=== PATIENT | female | born 1990 | race Caucasian/White ===

== ENCOUNTER 2021-03-26 17:13 | Emergency (ER) | payer OTHER, SELFPAY ==
[2021-03-26 17:16] VITALS: BP 110/81; PULSE 89; RESP 18; TEMP 37; O2SAT 97; BMI 30.1
[2021-03-26 17:28] LABS: Microscopic, Urine URINE MICROSCOPIC (MICROSCOPIC)
--- NOTE | 2021-03-26 17:28 | HMH.EDABDPAI ---
ED Disposition Clinical Impression: Cystitis Disposition: Home, Self-Care Condition on Discharge: Good Instructions: DI for Acute Abdominal Pain Additional Instructions: Take all medications as prescribed. Follow-up with your primary care doctor in about 3 to 4 days if you are not improving. Return to the emergency department if your symptoms are worsening. Prescriptions: Ciprofloxacin HCl [Cipro 500mg Tab] 500 mg PO BID 7 Days #1 tab Transmission Status: Received by [facility] #[id number] Referrals: Freddie Don [Primary Care Provider] - - Critical Care Critical Care Time: No Attestation: On , the high probability of a clinically significant, sudden or life threatening deterioration of the following system(s) required my full and direct attention, intervention and personal management. The time I documented below is in addition to time spent performing reported procedures but includes the following listed in this critical care notation. Medical Decision Making - Medical Records Medical records reviewed: Yes: I reviewed the patient's medical records. - Allna Inquiry Pt receiving controlled substance: No Vital Signs: 03/26/21 17:16 03/26/21 17:41 03/26/21 18:00 Temperature 98.6 F 98.6 F Temperature Source Oral Pulse Rate 84 86 Pulse Rate [Right] 89 Respiratory Rate 18 18 16 Blood Pressure 126/83 111/75 Blood Pressure [Right Arm] 110/81 Blood Pressure Mean [Right Arm] 90 02 Sat by Pulse Oximetry 97 98 Oxygen Delivery Method Room Air - Lab Data Lab results reviewed: Yes: I reviewed the patient's lab results. Lab Results 03/26/21 17:19: Urine Color Dk yellow, Urine Appearance Cloudy, Urine pH 6.0, Ur Specific [place] 1.025, Urine Protein 1+, Urine Glucose (UA) Negative, Urine Ketones Negative, Urine Blood 3+, Urine Nitrate Positive, Urine Bilirubin Negative, Urine Urobilinogen 2.0, Ur Leukocyte Esterase 2+ A, Urine RBC 10-20, Urine WBC 10-20, Ur Squamous Epith Cells 3-5, Urine Bacteria 2+ 03/26/21 17:19: Urine HCG, Qual Negative Orders (Tests/Meds): ORDERS Category Date Time Status Urine Culture Stat Micro 03/26/21 17:19 Received Medical Decision Narrative: The patient presents to the emergency department complaining of approximately 1 week history of urinary tract infection symptoms. The patient's work-up in the emergency department reveals a urinary tract infection without evidence of acute pyelonephritis. The patient is not vomiting. Therefore, I believe that the patient can be safely discharged home on oral antibiotics. Abdominal Pain HPI - General Chief Complaint: Abdominal Pain Stated Complaint: Possible UTI,stomach,back pain Time Seen by Provider: 03/26/21 17:20 Mode of Arrival: Ambulatory Source of Information: Patient Limitations: No Limitations - History of Present Illness HPI narrative: Presents to the emergency department complaining of urinary tract infection symptoms. She states this began about March 18 and has not improved. She took some Azo without any relief. She states that she has had subjective fevers but did not measure her temperature. Patient denies any nausea or vomiting or diarrhea. MD complaint: abdominal pain Onset (ago): day(s) (8) Consistency: constant Location: L flank, R flank - Related Data Previous Rx's Medication Instructions Recorded Ciprofloxacin HCl [Cipro 500mg 500 mg PO BID 7 Days #1 tab 03/26/21 Tab] Allergies Allergy/AdvReac Type Severity Reaction Status Date / Time No Known Drug Allergies Allergy Unknown Unverified 09/02/17 14:56 [NKDA] [facility] History - Hepatitis A Screen Drug use history?: No High risk sexual behaviors?: No Attestation statement:: This patient has been screened for Hepatitis A risk factors. I have reviewed the patient's past medical history: Yes ROS Obtained: Yes All systems reviewed & no additional complaints Physical Exam - General General appea
[2021-03-26 17:31] LABS: Appearance,Urine CLOUDY (Clear); Bilirubin,Urine Negative (Negative); Blood, Urine 3+ (Negative); Color,Urine DK YELLOW (Yellow); Glucose,Urine (UA) Negative (Negative); Ketones,Urine Negative (Negative); Leukocyte Esterase,Urine 2+ (Negative); Nitrate,Urine POSITIVE (Negative); Protein,Urine 1+ (Negative); Specific Gravity, Urine 1.025 (1.005-1.030)
[2021-03-26 17:35] LABS: Urine Pregnancy, HCG Qual. Negative (Negative)
[2021-03-26 17:41] VITALS: BP 126/83; PULSE 84; RESP 18; O2SAT 98
[2021-03-26 17:45] LABS: Bacteria,Urine 2+ /lpf
[2021-03-26 18:00] VITALS: BP 111/75; PULSE 86; RESP 16; TEMP 37; O2SAT 97
--- NOTE | 2021-03-26 18:19 | PC.NURSE ---
[facility] CALLED AND STATED PATIENT HAS NOT RECEIVED SCRIPT THAT WAS SENT ELECTRONICALLY AND REQUESTED FOR A RE-TRANSMISSION. IT WAS RE-TRANSMITTED AT THIS TIME AND CONFIRMED
== END 2021-03-26 18:01 | disposition home or self-care (01) ==
PROVIDERS: Emergency Provider Emergency Medicine; PCP Pediatrics
DX: N30.90 Cystitis, unspecified without hematuria (principal)
CPT/HCPCS: 81001; 81025; 87086; 87088; 87186; 99281

== ENCOUNTER 2022-01-14 19:38 | Emergency (ER) | payer OTHER, SELFPAY ==
[2022-01-14 21:23] VITALS: BP 114/70; PULSE 86; RESP 18; TEMP 37.1; O2SAT 97; BMI 33.5
[2022-01-14 21:31] LABS: UTC Influenza A Antigen Negative (Negative); UTC Influenza B Antigen Negative (Negative)
[2022-01-14 21:34] LABS: Strep Scrn Group A (Rapid) Negative (Negative)
--- NOTE | 2022-01-14 22:00 | HMH.EDUTC ---
[facility] [place] Clinical Impression: Pharyngitis Qualifiers: Pharyngitis/tonsillitis etiology: unspecified etiology Qualified Code(s): J02.9 - Acute pharyngitis, unspecified Disposition: Home, Self-Care Condition on Discharge: Good Instructions: DI for Pharyngitis/Tonsillopharyngitis -- Adult Additional Instructions: Drink plenty of fluids. Take tylenol or ibuprofen for pain or fever. Take the medications as directed. Follow up with your regular doctor. GO TO THE ER FOR ANY WORSENING SYMPTOMS Prescriptions: Amoxicillin [Amoxicillin 500mg Tab] 500 mg PO TID 10 Days #30 tab Transmission Status: Received by [employer] # predniSONE [Deltasone 10mg tablet] 10 mg PO BID 3 Days #6 tab Transmission Status: Received by [employer] # Referrals: Provider,Referral, MD [Primary Care Provider] - Time of Disposition: 22:15 Medical Decision Making - Medical Records Medical records reviewed: No: I reviewed the patient's medical records. - Allan Inquiry Pt receiving controlled substance: No Vital Signs: 01/14/22 21:23 01/14/22 22:16 Temperature 98.7 F 98.7 F Temperature Source Oral Pulse Rate 86 Pulse Rate [Left] 86 Respiratory Rate 18 18 Blood Pressure 114/70 Blood Pressure [Right Arm] 114/70 Blood Pressure Mean [Right Arm] 84 02 Sat by Pulse Oximetry 97 - Lab Data Lab results reviewed: Yes: I reviewed the patient's lab results. Lab Results 01/14/22 21:16: Influenza Type A Ag Negative, Influenza Type B Ag Negative 01/14/22 21:17: Group A Strep Rapid Negative Orders (Tests/Meds): ORDERS Category Date Time Status Strep Screen Confirmation Stat Micro 01/14/22 21:17 Received [facility] [place] - General Stated complaint: spure throat,cough Time Seen by Provider: 01/14/22 22:00 Mode of Arrival: Ambulatory Source of Information: Patient Limitations: No Limitations Description of Symptoms (Recalled from Triage Doc. by RN): pt c/o sore throat and neck pain that began yesterday HEENT Symptoms (Recalled from RN notes): Yes Resp Symptoms (Recalled from RN notes): No Skin Symptoms (Recalled from RN notes): No MS Symptoms (Recalled from RN notes): No Functional Status (Recalled from RN notes): wnl - History of Present Illness Provider Complaint: She c/o sore throat for the past 2 days. She has had chilling but no fever. - Related Data Previous Rx's Medication Instructions Recorded Ciprofloxacin HCl [Cipro 500mg 500 mg PO BID 7 Days #1 tab 03/26/21 Tab] Amoxicillin [Amoxicillin 500mg Tab] 500 mg PO TID 10 Days #30 tab 01/14/22 predniSONE [Deltasone 10mg tablet] 10 mg PO BID 3 Days #6 tab 01/14/22 Allergies Allergy/AdvReac Type Severity Reaction Status Date / Time No Known Drug Allergies Allergy Unknown Unverified 09/02/17 14:56 [NKDA] - Worker's Comp Is this a Worker's Comp case?: No [facility] History - Hepatitis A Screen Attestation statement:: This patient has been screened for Hepatitis A risk factors. I have reviewed the patient's past medical history: Yes ROS Obtained: Yes All systems reviewed & no additional complaints - Constitutional Constitutional: Denies chills, Denies fever(s) - Eyes Eyes: Denies eye discharge - ENT Ears, Nose, Mouth, and Throat: Reports as per HPI - Cardiovascular Cardiovascular: Denies chest pain - Respiratory Respiratory: Reports cough Physical Exam - General General appearance: alert, in no apparent distress - Head Head exam: atraumatic, normocephalic, normal inspection - Eye Eye exam: Present: normal appearance, PERRL, EOMI - ENT ENT exam: Present: normal exam, normal oropharynx, mucous membranes moist, TM's normal bilaterally, normal external ear exam - Neck Neck exam: Present: normal inspection, full ROM, trachea midline. Absent: meningismus, lymphadenopathy - Chest Chest inspection: Present: normal inspection, symmetric chest wall rise. Absent: tenderne
[2022-01-14 22:16] VITALS: BP 114/70; PULSE 86; RESP 18; TEMP 37.1
== END 2022-01-14 22:20 | disposition home or self-care (01) ==
PROVIDERS: Emergency Provider Nurse Practitioner Family
DX: J02.9 Acute pharyngitis, unspecified (principal)
CPT/HCPCS: 87430; 87804; 99212; G0463